=== PATIENT | male | born 1970 | race Asian ===

== ENCOUNTER 2017-03-24 13:33 | Emergency (ER) | payer BC, SELFPAY ==
[2017-03-24 13:34] VITALS: BP 142/75; PULSE 79; RESP 22; TEMP 37.1; O2SAT 98; BMI 27.8
--- NOTE | 2017-03-24 14:01 | ED.DCSUM_ITS ---
- ER Visit Summary Date of Service: 03/24/17 Chief Complaint: Injury History of Present Illness: The patient is a 46 M who hit his head when he sustained a mechanical fall earlier today. He has an abrasion to his forehead. Denies any other injuries. Denies loss of consciousness. He did see stars. Denies blood thinner use. Denies any weakness or numbness. Patient has been dealing with headaches recently anyway, and he reports a lot of family stressors. Physical Examination: Is unremarkable, afebrile. Abrasion approximately 4 cm x 5 cm to his right forehead. Mild oozing of serosanguineous fluid. The remainder of his head is atraumatic. HEENT exam unremarkable. Neck nontender. Cranial nerves grossly intact. No focal or lateralizing neurologic findings. Test Results: CT head pending. Emergency Department Course and Treatment: Tetanus updated. Patient treated with bacitracin. CT head was unremarkable. Patient was requesting to file with the [employer]. His employer called and said that it did not meet criteria. I advised that he should follow-up with his employer. He also requested cholesterol testing, and I will refer him to his primary care doctor. Dressing applied. Patient was referred for follow-up. Treatment Plan: As above Disposition: Discharge Impression: 1. Forehead abrasion This note was generated with [employer] dictation software. It may contain incorrect words, spelling, and punctuation that were not noted in review of the chart prior to signing ED Disposition - Plan for ED Patient: Chief Complaint: Head Injury Referrals: Fernandez Cruz DO [Primary Care Provider] -
--- NOTE | 2017-03-24 14:02 | CT_ITS ---
STUDY: CT BRAIN WITHOUT CONTRAST REASON FOR EXAM: Male, 46 years old. Soft tissue swelling overlying the forehead following a fall. RADIATION DOSAGE (If Supplied By Facility): CTDIvol = ( 60.81 ) mGy, DLP = ( 1067.08 ) mGycm TECHNIQUE: Transaxial CT imaging of the brain was performed without administration of intravenous contrast material. Individualized dose optimization techniques were used for this CT. COMPARISON: None. FINDINGS: Normal soft tissue structures. Normal calvarium. Normal size ventricles and extra-axial spaces for the patient's age. Normal white matter tracts of the cerebral hemispheres. Normal basal ganglia and thalami. Normal brainstem. Normal cerebellum. There is no intracranial hemorrhage. There are no findings of an acute ischemic infarction. Normal visualized paranasal sinuses. CT/Brain/Head without Contrast IMPRESSION: Normal unenhanced CT scan of the brain. Electronically Signed: Ruddy Villarreal MD at 15:04 EST Tel [phone], Service support ,
--- NOTE | 2017-03-24 15:22 | ED.DEP ---
ED Disposition - Plan for ED Patient: Chief Complaint: Head Injury Instructions: ED Contusion Face Referrals: Fernandez Cruz DO [Primary Care Provider] - [facility] [GROUP OF PHYSICIANS] -
--- NOTE | 2017-03-24 15:23 | DCINST.ED_ITS ---
ED Disposition - Plan for ED Patient: Chief Complaint: Head Injury Instructions: ED Contusion Face Referrals: Fernandez Cruz DO [Primary Care Provider] - [facility] [GROUP OF PHYSICIANS] -
[2017-03-24] MEDS: BACITRACIN 15 GM Tube 1 APPLIC TOPICAL (15:33)
== END 2017-03-24 15:35 | disposition home or self-care (01) ==
PROVIDERS: Emergency Provider Emergency Medicine; Family Provider Family Medicine; PCP Family Medicine
DX: S00.81XA Abrasion of other part of head, initial encounter (principal); W01.0XXA Fall on same level from slipping, tripping and stumbling without subsequent striking against object, initial encounter; Y93.9 Activity, unspecified; Y92.9 Unspecified place or not applicable
CPT/HCPCS: 70450; 99282